=== PATIENT | male | born 1965 | race Caucasian/White ===

== ENCOUNTER 2024-06-20 10:30 | Outpatient (RCR) | payer OTHER, SELFPAY | END 2024-09-11 10:42 | disposition home or self-care (01) | PROVIDERS: PCP Physician Assistant; Visit Provider Family Medicine | DX: I89.0 Lymphedema, not elsewhere classified (principal); I87.2 Venous insufficiency (chronic) (peripheral); L97.229 Non-pressure chronic ulcer of left calf with unspecified severity; R22.43 Localized swelling, mass and lump, lower limb, bilateral; Z51.89 Encounter for other specified aftercare | CPT/HCPCS: 97110; 97140; 97166; 97535; X5282 ==

== ENCOUNTER 2024-06-29 20:15 | Outpatient (CLI) | payer OTHER, SELFPAY | END 2024-06-29 20:16 | disposition home or self-care (01) | LOC: SLEEP 20:17 | PROVIDERS: PCP Internal Medicine; Visit Provider Internal Medicine | DX: G47.33 Obstructive sleep apnea (adult) (pediatric) (principal); R09.02 Hypoxemia | CPT/HCPCS: 95811 ==

== ENCOUNTER 2024-07-28 07:55 | Outpatient (CLI) | payer OTHER, SELFPAY | END 2024-07-28 07:56 | disposition home or self-care (01) | LOC: WOUND 07:56 | PROVIDERS: PCP Internal Medicine; Visit Provider Nurse Practitioner Family | DX: I87.312 Chronic venous hypertension (idiopathic) with ulcer of left lower extremity (principal); I89.0 Lymphedema, not elsewhere classified; E11.622 Type 2 diabetes mellitus with other skin ulcer; L97.328 Non-pressure chronic ulcer of left ankle with other specified severity; E66.01 Morbid (severe) obesity due to excess calories; Z68.43 Body mass index [BMI] 50.0-59.9, adult; Z79.4 Long term (current) use of insulin | CPT/HCPCS: 97602; G0463 ==

== ENCOUNTER 2024-07-31 14:52 | Outpatient (CLI) | payer OTHER, SELFPAY | END 2024-07-31 14:53 | disposition home or self-care (01) | PROVIDERS: PCP Internal Medicine; Visit Provider Nurse Practitioner Family | DX: I87.312 Chronic venous hypertension (idiopathic) with ulcer of left lower extremity (principal); I89.0 Lymphedema, not elsewhere classified; E11.622 Type 2 diabetes mellitus with other skin ulcer; L97.322 Non-pressure chronic ulcer of left ankle with fat layer exposed; Z72.0 Tobacco use; Z79.84 Long term (current) use of oral hypoglycemic drugs | CPT/HCPCS: 11042; 11045; 87070; 87186 ==

== ENCOUNTER 2024-08-01 12:59 | Outpatient (CLI) | payer OTHER, SELFPAY | END 2024-08-01 13:00 | disposition home or self-care (01) | LOC: WOUND 12:59 | PROVIDERS: PCP Internal Medicine; Visit Provider Nurse Practitioner Family | DX: I87.312 Chronic venous hypertension (idiopathic) with ulcer of left lower extremity (principal); E11.622 Type 2 diabetes mellitus with other skin ulcer; I89.0 Lymphedema, not elsewhere classified; L97.322 Non-pressure chronic ulcer of left ankle with fat layer exposed; Z79.84 Long term (current) use of oral hypoglycemic drugs | CPT/HCPCS: G0463 ==

== ENCOUNTER 2024-08-04 07:43 | Outpatient (CLI) | payer OTHER, SELFPAY | END 2024-08-04 07:44 | disposition home or self-care (01) | LOC: WOUND 07:44 | PROVIDERS: PCP Internal Medicine; Visit Provider Nurse Practitioner Family | DX: I87.312 Chronic venous hypertension (idiopathic) with ulcer of left lower extremity (principal); I89.0 Lymphedema, not elsewhere classified; E11.622 Type 2 diabetes mellitus with other skin ulcer; L97.322 Non-pressure chronic ulcer of left ankle with fat layer exposed; B96.4 Proteus (mirabilis) (morganii) as the cause of diseases classified elsewhere; S91.135A Puncture wound without foreign body of left lesser toe(s) without damage to nail, initial encounter; W27.3XXA Contact with needle (sewing), initial encounter; Z79.84 Long term (current) use of oral hypoglycemic drugs | CPT/HCPCS: 11042; 11045; 96372; G0463; J0696 ==

== ENCOUNTER 2024-08-18 08:04 | Outpatient (CLI) | payer OTHER, SELFPAY | END 2024-08-18 08:05 | disposition home or self-care (01) | LOC: WOUND 08:04 | PROVIDERS: PCP Internal Medicine; Visit Provider Nurse Practitioner Family | DX: I87.312 Chronic venous hypertension (idiopathic) with ulcer of left lower extremity (principal); I89.0 Lymphedema, not elsewhere classified; E11.622 Type 2 diabetes mellitus with other skin ulcer; L97.328 Non-pressure chronic ulcer of left ankle with other specified severity; L97.828 Non-pressure chronic ulcer of other part of left lower leg with other specified severity; Z79.84 Long term (current) use of oral hypoglycemic drugs | CPT/HCPCS: 97602; G0463 ==

== ENCOUNTER 2024-08-21 14:40 | Outpatient (CLI) | payer OTHER, SELFPAY | END 2024-08-21 14:41 | disposition home or self-care (01) | LOC: WOUND 14:40 | PROVIDERS: PCP Internal Medicine; Visit Provider Nurse Practitioner Family | DX: I87.312 Chronic venous hypertension (idiopathic) with ulcer of left lower extremity (principal); I89.0 Lymphedema, not elsewhere classified; L97.322 Non-pressure chronic ulcer of left ankle with fat layer exposed; L97.828 Non-pressure chronic ulcer of other part of left lower leg with other specified severity | CPT/HCPCS: 29581 ==

== ENCOUNTER 2024-08-25 07:56 | Outpatient (CLI) | payer OTHER, SELFPAY | END 2024-08-25 07:57 | disposition home or self-care (01) | LOC: WOUND 07:56 | PROVIDERS: PCP Internal Medicine; Visit Provider Nurse Practitioner Family | DX: I87.312 Chronic venous hypertension (idiopathic) with ulcer of left lower extremity (principal); I89.0 Lymphedema, not elsewhere classified; E11.622 Type 2 diabetes mellitus with other skin ulcer; L97.322 Non-pressure chronic ulcer of left ankle with fat layer exposed; L97.822 Non-pressure chronic ulcer of other part of left lower leg with fat layer exposed; Z79.84 Long term (current) use of oral hypoglycemic drugs | CPT/HCPCS: 11042; 11045 ==

== ENCOUNTER 2024-08-28 14:41 | Outpatient (CLI) | payer OTHER, SELFPAY | END 2024-08-28 14:42 | disposition home or self-care (01) | LOC: WOUND 14:41 | PROVIDERS: PCP Internal Medicine; Visit Provider Nurse Practitioner Family | DX: I87.312 Chronic venous hypertension (idiopathic) with ulcer of left lower extremity (principal); I89.0 Lymphedema, not elsewhere classified; L97.322 Non-pressure chronic ulcer of left ankle with fat layer exposed; L97.828 Non-pressure chronic ulcer of other part of left lower leg with other specified severity | CPT/HCPCS: 29581 ==

== ENCOUNTER 2024-09-01 08:50 | Outpatient (CLI) | payer OTHER, SELFPAY | END 2024-09-01 08:51 | disposition home or self-care (01) | LOC: WOUND 08:50 | PROVIDERS: PCP Internal Medicine; Visit Provider Nurse Practitioner Family | DX: I87.312 Chronic venous hypertension (idiopathic) with ulcer of left lower extremity (principal); I89.0 Lymphedema, not elsewhere classified; L97.322 Non-pressure chronic ulcer of left ankle with fat layer exposed; L97.828 Non-pressure chronic ulcer of other part of left lower leg with other specified severity | CPT/HCPCS: 97597; 97598 ==

== ENCOUNTER 2024-09-22 08:05 | Outpatient (CLI) | payer OTHER, SELFPAY | END 2024-09-22 08:06 | disposition home or self-care (01) | LOC: WOUND 08:05 | PROVIDERS: PCP Internal Medicine; Visit Provider Nurse Practitioner Family | DX: I87.312 Chronic venous hypertension (idiopathic) with ulcer of left lower extremity (principal); I89.0 Lymphedema, not elsewhere classified; E11.622 Type 2 diabetes mellitus with other skin ulcer; L97.322 Non-pressure chronic ulcer of left ankle with fat layer exposed; Z79.84 Long term (current) use of oral hypoglycemic drugs | CPT/HCPCS: 97597; 97598 ==

== ENCOUNTER 2024-10-16 13:26 | Outpatient (CLI) | payer OTHER, SELFPAY | END 2024-10-16 13:27 | disposition home or self-care (01) | LOC: WOUND 13:26 | PROVIDERS: PCP Internal Medicine; Visit Provider Nurse Practitioner Family | DX: I87.312 Chronic venous hypertension (idiopathic) with ulcer of left lower extremity (principal); I89.0 Lymphedema, not elsewhere classified; E11.622 Type 2 diabetes mellitus with other skin ulcer; L97.322 Non-pressure chronic ulcer of left ankle with fat layer exposed; Z79.84 Long term (current) use of oral hypoglycemic drugs | CPT/HCPCS: 97597; 97598 ==

== ENCOUNTER 2024-10-21 08:05 | Outpatient (CLI) | payer OTHER, SELFPAY | END 2024-10-21 08:06 | disposition home or self-care (01) | LOC: WOUND 08:05 | PROVIDERS: PCP Internal Medicine; Visit Provider Nurse Practitioner Family | DX: I87.312 Chronic venous hypertension (idiopathic) with ulcer of left lower extremity (principal); I89.0 Lymphedema, not elsewhere classified; E11.622 Type 2 diabetes mellitus with other skin ulcer; L97.322 Non-pressure chronic ulcer of left ankle with fat layer exposed; Z79.84 Long term (current) use of oral hypoglycemic drugs | CPT/HCPCS: 97597; 97598 ==

== ENCOUNTER 2024-10-27 08:10 | Outpatient (CLI) | payer OTHER, SELFPAY | END 2024-10-27 08:11 | disposition home or self-care (01) | LOC: WOUND 08:11 | PROVIDERS: PCP Internal Medicine; Visit Provider Nurse Practitioner Family | DX: I87.312 Chronic venous hypertension (idiopathic) with ulcer of left lower extremity (principal); I89.0 Lymphedema, not elsewhere classified; E11.622 Type 2 diabetes mellitus with other skin ulcer; L97.322 Non-pressure chronic ulcer of left ankle with fat layer exposed | CPT/HCPCS: 97597; 97598 ==

== ENCOUNTER 2024-11-03 07:52 | Outpatient (CLI) | payer OTHER, SELFPAY | END 2024-11-03 07:53 | disposition home or self-care (01) | LOC: WOUND 07:53 | PROVIDERS: PCP Internal Medicine; Visit Provider Nurse Practitioner Family | DX: I87.312 Chronic venous hypertension (idiopathic) with ulcer of left lower extremity (principal); E11.622 Type 2 diabetes mellitus with other skin ulcer; I89.0 Lymphedema, not elsewhere classified; L97.322 Non-pressure chronic ulcer of left ankle with fat layer exposed; Z79.84 Long term (current) use of oral hypoglycemic drugs | CPT/HCPCS: 11042; 11045 ==

== ENCOUNTER 2024-11-10 12:11 | Outpatient (CLI) | payer OTHER, SELFPAY | END 2024-11-10 12:12 | disposition home or self-care (01) | LOC: WOUND 12:12 | PROVIDERS: PCP Internal Medicine; Visit Provider Physician Assistant Surgical | DX: I87.312 Chronic venous hypertension (idiopathic) with ulcer of left lower extremity (principal); E11.622 Type 2 diabetes mellitus with other skin ulcer; I89.0 Lymphedema, not elsewhere classified; L97.322 Non-pressure chronic ulcer of left ankle with fat layer exposed | CPT/HCPCS: 11042; 11045 ==

== ENCOUNTER 2024-11-24 08:08 | Outpatient (CLI) | payer OTHER, SELFPAY | END 2024-11-24 08:09 | disposition home or self-care (01) | LOC: WOUND 08:08 | PROVIDERS: PCP Internal Medicine; Visit Provider Nurse Practitioner Family | DX: I87.312 Chronic venous hypertension (idiopathic) with ulcer of left lower extremity (principal); I89.0 Lymphedema, not elsewhere classified; E11.622 Type 2 diabetes mellitus with other skin ulcer; L97.322 Non-pressure chronic ulcer of left ankle with fat layer exposed; Z79.84 Long term (current) use of oral hypoglycemic drugs; F17.200 Nicotine dependence, unspecified, uncomplicated | CPT/HCPCS: 97597; 97598 ==

== ENCOUNTER 2024-12-02 08:29 | Outpatient (CLI) | payer OTHER, SELFPAY | END 2024-12-02 08:30 | disposition home or self-care (01) | LOC: WOUND 08:29 | PROVIDERS: PCP Internal Medicine; Visit Provider Family Medicine | DX: I87.312 Chronic venous hypertension (idiopathic) with ulcer of left lower extremity (principal); I89.0 Lymphedema, not elsewhere classified; E11.622 Type 2 diabetes mellitus with other skin ulcer; L97.322 Non-pressure chronic ulcer of left ankle with fat layer exposed; F17.200 Nicotine dependence, unspecified, uncomplicated; Z59.82 Transportation insecurity; Z79.84 Long term (current) use of oral hypoglycemic drugs | CPT/HCPCS: 11042; 11045 ==

== ENCOUNTER 2024-12-15 08:00 | Outpatient (CLI) | payer OTHER, SELFPAY | END 2024-12-15 08:01 | disposition home or self-care (01) | LOC: WOUND 08:00 | PROVIDERS: PCP Internal Medicine; Visit Provider Physician Assistant | DX: I87.312 Chronic venous hypertension (idiopathic) with ulcer of left lower extremity (principal); I89.0 Lymphedema, not elsewhere classified; E11.622 Type 2 diabetes mellitus with other skin ulcer; L97.322 Non-pressure chronic ulcer of left ankle with fat layer exposed; Z79.84 Long term (current) use of oral hypoglycemic drugs; Z60.9 Problem related to social environment, unspecified | CPT/HCPCS: 97597; 97598 ==

== ENCOUNTER 2024-12-22 08:10 | Outpatient (CLI) | payer OTHER, SELFPAY | END 2024-12-22 08:11 | disposition home or self-care (01) | LOC: WOUND 08:11 | PROVIDERS: PCP Internal Medicine; Visit Provider Family Medicine | DX: I87.312 Chronic venous hypertension (idiopathic) with ulcer of left lower extremity (principal); I89.0 Lymphedema, not elsewhere classified; E11.622 Type 2 diabetes mellitus with other skin ulcer; L97.322 Non-pressure chronic ulcer of left ankle with fat layer exposed; Z79.84 Long term (current) use of oral hypoglycemic drugs | CPT/HCPCS: 11042; 11045 ==

== ENCOUNTER 2024-12-29 08:01 | Outpatient (CLI) | payer OTHER, SELFPAY | END 2024-12-29 08:02 | disposition home or self-care (01) | LOC: WOUND 08:01 | PROVIDERS: PCP Internal Medicine; Visit Provider Physician Assistant | DX: I87.312 Chronic venous hypertension (idiopathic) with ulcer of left lower extremity (principal); I89.0 Lymphedema, not elsewhere classified; E11.622 Type 2 diabetes mellitus with other skin ulcer; L97.322 Non-pressure chronic ulcer of left ankle with fat layer exposed; F17.200 Nicotine dependence, unspecified, uncomplicated | CPT/HCPCS: 97597; 97598 ==

== ENCOUNTER 2025-01-05 08:03 | Outpatient (CLI) | payer OTHER, SELFPAY | END 2025-01-05 08:04 | disposition home or self-care (01) | LOC: WOUND 08:03 | PROVIDERS: PCP Internal Medicine; Visit Provider Nurse Practitioner Family | DX: I87.312 Chronic venous hypertension (idiopathic) with ulcer of left lower extremity (principal); I89.0 Lymphedema, not elsewhere classified; E11.622 Type 2 diabetes mellitus with other skin ulcer; L97.322 Non-pressure chronic ulcer of left ankle with fat layer exposed; Z79.84 Long term (current) use of oral hypoglycemic drugs | CPT/HCPCS: 97597; 97598 ==

== ENCOUNTER 2025-01-19 08:07 | Outpatient (CLI) | payer OTHER, SELFPAY | END 2025-01-19 08:08 | disposition home or self-care (01) | LOC: WOUND 08:07 | PROVIDERS: PCP Internal Medicine; Visit Provider Family Medicine | DX: I87.312 Chronic venous hypertension (idiopathic) with ulcer of left lower extremity (principal); I89.0 Lymphedema, not elsewhere classified; E11.622 Type 2 diabetes mellitus with other skin ulcer; L97.322 Non-pressure chronic ulcer of left ankle with fat layer exposed; L97.822 Non-pressure chronic ulcer of other part of left lower leg with fat layer exposed; Z79.84 Long term (current) use of oral hypoglycemic drugs | CPT/HCPCS: 11042; 11045 ==

== ENCOUNTER 2025-02-02 15:40 | Outpatient (CLI) | payer OTHER, SELFPAY | END 2025-02-02 15:41 | disposition home or self-care (01) | LOC: WOUND 15:41 | PROVIDERS: PCP Internal Medicine; Visit Provider Physician Assistant Surgical | DX: I87.312 Chronic venous hypertension (idiopathic) with ulcer of left lower extremity (principal); I89.0 Lymphedema, not elsewhere classified; E11.622 Type 2 diabetes mellitus with other skin ulcer; L97.322 Non-pressure chronic ulcer of left ankle with fat layer exposed; F17.200 Nicotine dependence, unspecified, uncomplicated | CPT/HCPCS: 11042; 11045 ==

== ENCOUNTER 2025-02-16 08:00 | Outpatient (CLI) | payer OTHER, SELFPAY | END 2025-02-16 08:01 | disposition home or self-care (01) | PROVIDERS: PCP Internal Medicine; Visit Provider Family Medicine | DX: I87.312 Chronic venous hypertension (idiopathic) with ulcer of left lower extremity (principal); I89.0 Lymphedema, not elsewhere classified; E11.622 Type 2 diabetes mellitus with other skin ulcer; L97.322 Non-pressure chronic ulcer of left ankle with fat layer exposed; Z79.84 Long term (current) use of oral hypoglycemic drugs | CPT/HCPCS: 11042; 11045 ==

== ENCOUNTER 2025-03-02 10:48 | Outpatient (CLI) | payer OTHER, SELFPAY | END 2025-03-02 10:49 | disposition home or self-care (01) | LOC: WOUND 10:48 | PROVIDERS: PCP Internal Medicine; Visit Provider Physician Assistant | DX: I87.312 Chronic venous hypertension (idiopathic) with ulcer of left lower extremity (principal); I89.0 Lymphedema, not elsewhere classified; E11.622 Type 2 diabetes mellitus with other skin ulcer; L97.322 Non-pressure chronic ulcer of left ankle with fat layer exposed; F17.200 Nicotine dependence, unspecified, uncomplicated; Z79.84 Long term (current) use of oral hypoglycemic drugs; Z59.82 Transportation insecurity | CPT/HCPCS: 97597; 97598 ==

== ENCOUNTER 2025-03-16 08:38 | Outpatient (CLI) | payer OTHER, SELFPAY | END 2025-03-16 08:39 | disposition home or self-care (01) | LOC: WOUND 08:38 | PROVIDERS: PCP Internal Medicine; Visit Provider Family Medicine | DX: I87.312 Chronic venous hypertension (idiopathic) with ulcer of left lower extremity (principal); I89.0 Lymphedema, not elsewhere classified; E11.622 Type 2 diabetes mellitus with other skin ulcer; L97.322 Non-pressure chronic ulcer of left ankle with fat layer exposed; Z79.84 Long term (current) use of oral hypoglycemic drugs | CPT/HCPCS: 11042; 11045 ==

== ENCOUNTER 2025-03-23 09:56 | Outpatient (CLI) | payer OTHER, SELFPAY | END 2025-03-23 09:57 | disposition home or self-care (01) | LOC: WOUND 09:56 | PROVIDERS: PCP Internal Medicine; Visit Provider Family Medicine | DX: I87.312 Chronic venous hypertension (idiopathic) with ulcer of left lower extremity (principal); I89.0 Lymphedema, not elsewhere classified; E11.622 Type 2 diabetes mellitus with other skin ulcer; L97.322 Non-pressure chronic ulcer of left ankle with fat layer exposed; F17.200 Nicotine dependence, unspecified, uncomplicated; Z79.84 Long term (current) use of oral hypoglycemic drugs | CPT/HCPCS: 11042; 11045 ==

== ENCOUNTER 2025-04-06 08:43 | Outpatient (CLI) | payer OTHER, SELFPAY | END 2025-04-06 08:44 | disposition home or self-care (01) | LOC: WOUND 08:43 | PROVIDERS: PCP Internal Medicine; Visit Provider Nurse Practitioner Family | DX: I87.312 Chronic venous hypertension (idiopathic) with ulcer of left lower extremity (principal); I89.0 Lymphedema, not elsewhere classified; E11.622 Type 2 diabetes mellitus with other skin ulcer; L97.322 Non-pressure chronic ulcer of left ankle with fat layer exposed; F17.200 Nicotine dependence, unspecified, uncomplicated; Z59.82 Transportation insecurity | CPT/HCPCS: 11042; 11045 ==

== ENCOUNTER 2025-04-20 08:52 | Outpatient (CLI) | payer OTHER, SELFPAY | END 2025-04-20 08:53 | disposition home or self-care (01) | LOC: WOUND 08:52 | PROVIDERS: PCP Internal Medicine; Visit Provider Family Medicine | DX: I87.312 Chronic venous hypertension (idiopathic) with ulcer of left lower extremity (principal); I89.0 Lymphedema, not elsewhere classified; E11.622 Type 2 diabetes mellitus with other skin ulcer; L97.322 Non-pressure chronic ulcer of left ankle with fat layer exposed; F17.200 Nicotine dependence, unspecified, uncomplicated; Z59.89 Other problems related to housing and economic circumstances | CPT/HCPCS: 11042; 11045 ==

== ENCOUNTER 2025-04-27 08:07 | Outpatient (CLI) | payer OTHER, SELFPAY | END 2025-04-27 08:08 | disposition home or self-care (01) | LOC: WOUND 08:07 | PROVIDERS: PCP Internal Medicine; Visit Provider Family Medicine | DX: I87.312 Chronic venous hypertension (idiopathic) with ulcer of left lower extremity (principal); I89.0 Lymphedema, not elsewhere classified; E11.622 Type 2 diabetes mellitus with other skin ulcer; L97.322 Non-pressure chronic ulcer of left ankle with fat layer exposed; F17.200 Nicotine dependence, unspecified, uncomplicated; Z59.89 Other problems related to housing and economic circumstances | CPT/HCPCS: 11042; 11045 ==

== ENCOUNTER 2025-05-11 08:05 | Outpatient (CLI) | payer OTHER, SELFPAY | END 2025-05-11 08:06 | disposition home or self-care (01) | PROVIDERS: PCP Internal Medicine; Visit Provider Family Medicine | DX: I87.312 Chronic venous hypertension (idiopathic) with ulcer of left lower extremity (principal); I89.0 Lymphedema, not elsewhere classified; E11.622 Type 2 diabetes mellitus with other skin ulcer; L97.322 Non-pressure chronic ulcer of left ankle with fat layer exposed; F17.200 Nicotine dependence, unspecified, uncomplicated; Z59.89 Other problems related to housing and economic circumstances | CPT/HCPCS: 11042; 11045 ==

== ENCOUNTER 2025-05-18 08:04 | Outpatient (CLI) | payer OTHER, SELFPAY | END 2025-05-18 08:05 | disposition home or self-care (01) | PROVIDERS: PCP Internal Medicine; Visit Provider Family Medicine | DX: I87.312 Chronic venous hypertension (idiopathic) with ulcer of left lower extremity (principal); I89.0 Lymphedema, not elsewhere classified; E11.622 Type 2 diabetes mellitus with other skin ulcer; L97.322 Non-pressure chronic ulcer of left ankle with fat layer exposed; F17.200 Nicotine dependence, unspecified, uncomplicated; Z59.89 Other problems related to housing and economic circumstances | CPT/HCPCS: 11042; 87070; G0463 ==

== ENCOUNTER 2025-05-25 08:07 | Outpatient (CLI) | payer OTHER, SELFPAY | END 2025-05-25 08:08 | disposition home or self-care (01) | LOC: WOUND 08:07 | PROVIDERS: PCP Internal Medicine; Visit Provider Nurse Practitioner Family | DX: I87.312 Chronic venous hypertension (idiopathic) with ulcer of left lower extremity (principal); I89.0 Lymphedema, not elsewhere classified; E11.622 Type 2 diabetes mellitus with other skin ulcer; L97.312 Non-pressure chronic ulcer of right ankle with fat layer exposed; Z79.84 Long term (current) use of oral hypoglycemic drugs; E66.01 Morbid (severe) obesity due to excess calories; Z68.43 Body mass index [BMI] 50.0-59.9, adult | CPT/HCPCS: 11042 ==